=== PATIENT | female | born 1990 | race African-American/Black ===

== ENCOUNTER 2016-10-16 07:07 | Observation (INO) | payer OTHER ==
[~2016-10-16] VITALS: Ht 175.3 cm; Wt 83.0 kg
[2016-10-20] MEDS ORDERED: FERR-63 PO (23:24)
[2016-10-20] MEDS ORDERED: PREN-88 PO (23:24)
[2016-10-20] MEDS ORDERED: FOLI-43 PO (23:24)
== END 2016-10-21 00:01 | disposition home or self-care (01) ==
LOC: L&D 10-20 22:20
PROVIDERS: ADMIT Obstetrics & Gynecology; ATTEND Obstetrics & Gynecology
DX: O26.893 Other specified pregnancy related conditions, third trimester (principal); N89.8 Other specified noninflammatory disorders of vagina; Z3A.40 40 weeks gestation of pregnancy
CPT/HCPCS: 99281; G0378

== ENCOUNTER 2021-05-27 21:34 | Emergency (ER) | payer OTHER ==
[~2021-05-27 21:34] MED LIST: FERR-63 PO; PREN-88 PO
== END 2021-05-27 23:04 | disposition left against medical advice (07) ==
LOC: ER 21:34
DX: Z53.21 Procedure and treatment not carried out due to patient leaving prior to being seen by health care provider (principal)